=== PATIENT | male | born 1990 | race African-American/Black ===

== ENCOUNTER 2018-02-20 11:07 | Emergency (ER) | payer MEDICAID, OTHER ==
[~2018-02-20] VITALS: Ht 175.3 cm; Wt 68.0 kg
[2018-02-20 11:21] VITALS: BP 120/74
== END 2018-02-20 12:15 | disposition home or self-care (01) ==
LOC: ER 11:07
DX: L03.211 Cellulitis of face (principal); R03.0 Elevated blood-pressure reading, without diagnosis of hypertension; F17.210 Nicotine dependence, cigarettes, uncomplicated
CPT/HCPCS: 99282; 99283